=== PATIENT | male | born 1975 | race Caucasian/White ===

== ENCOUNTER 2017-04-24 22:17 | Emergency (ER) | payer MEDICAID ==
[2017-04-24 23:00] VITALS: BP 131/81
[2017-04-25] MEDS ORDERED: TORADOL IM ONE (03:01)
--- NOTE | 2017-04-25 03:01 | Emergency Department Report ---
ED Upper Extremity Inj HPI - General Chief Complaint: Extremity Injury, Upper Stated Complaint: ARM PAIN Time Seen by Provider: 04/25/17 02:44 Source: patient Mode of arrival: Ambulatory Limitations: No Limitations - History of Present Illness Initial Comments: This is a 41-year-old male well-nourished with nontoxic or ill in appearance that presented to the ED complaining of pain status post fall that has occurred today about 10 in the morning. Patient was seen at [facility] and was diagnosed with right distal radius fracture as well as laceration to the right eyebrow. Patient stated he was prescribed Pageton 5 mg and stated the pain has not been subsided. Patient is currently presented with a cast as well as a sterile 4 x 4 dressed with tape to the right eyebrow region. Otherwise patient denies any other symptoms or complaints. Patient denies any allergies. Denies past medical history. Patient stated has a orthopedic appointment today in the morning. MD Complaint: Injury to:: forearm -: Gradual, days(s) (1) Other Extremity Injury: Forearm: Right Improves With: none Worsens With: none Context: fall Associated Symptoms: denies other symptoms. denies: weakness, numbness, neck pain, suspects foreign body, nausea/vomiting, heard/felt popping sensat - Related Data Previous Rx's Medication Instructions Recorded Last Taken Type HYDROcodone/APAP 10-325 [Pageton 1 each PO Q6H PRN #45 tablet 03/05/14 Unknown Rx 10-325 mg TAB] Levofloxacin [Levaquin TAB] 500 mg PO Q24HR #5 tablet 03/05/14 Unknown Rx Ibuprofen [Motrin 800 MG tab] 800 mg PO Q8HR PRN #20 tablet 04/25/17 Unknown Rx Allergies Allergy/AdvReac Type Severity Reaction Status Date / Time No Known Allergies Allergy Unverified 03/04/14 13:01 ED Review of Systems ROS: Stated complaint: ARM PAIN Other details as noted in HPI Constitutional: denies: chills, fever Eyes: denies: eye pain, eye discharge, vision change ENT: denies: ear pain, throat pain Respiratory: denies: cough, shortness of breath, wheezing Cardiovascular: denies: chest pain, palpitations Endocrine: no symptoms reported Gastrointestinal: denies: abdominal pain, nausea, diarrhea Genitourinary: denies: urgency, dysuria Musculoskeletal: denies: back pain, joint swelling, arthralgia Skin: denies: rash, lesions Neurological: denies: headache, weakness, paresthesias Psychiatric: denies: anxiety, depression Hematological/Lymphatic: denies: easy bleeding, easy bruising ED Past Medical Hx - Past Medical History Previous Medical History?: No Hx Hypertension: No Hx Congestive Heart Failure: No Hx Diabetes: No Hx Liver Disease: No Hx Renal Disease: No Hx Asthma: No Hx COPD: No - Surgical History Past Surgical History?: Yes Additional Surgical History: kidney stone removal - Social History Smoking Status: Never Smoker - Medications Home Medications: Home Medications Medication Instructions Recorded Confirmed Last Taken Type HYDROcodone/APAP 10-325 [Pageton 1 each PO Q6H PRN #45 tablet 03/05/14 Unknown Rx 10-325 mg TAB] Levofloxacin [Levaquin TAB] 500 mg PO Q24HR #5 tablet 03/05/14 Unknown Rx Ibuprofen [Motrin 800 MG tab] 800 mg PO Q8HR PRN #20 tablet 04/25/17 Unknown Rx ED Physical Exam - General Limitations: No Limitations General appearance: alert, in no apparent distress - Head Head exam: Present: atraumatic, normocephalic, normal inspection - Eye Eye exam: Present: normal appearance, PERRL, EOMI. Absent: scleral icterus, conjunctival injection, periorbital swelling, periorbital tenderness Pupils: Present: normal accommodation - ENT ENT exam: Present: normal exam, normal orophraynx, mucous membranes moist, TM's normal bilaterally, normal external ear exam - Neck Neck exam: Present: normal inspection, full ROM. Absent: tenderness, meningismus, lymphadenopathy, thyromegaly - Respiratory Respiratory exam: Present: normal lung sounds bilaterally. Absent: respiratory distress, wheezes, rales, rhonchi, stridor - Cardiovascular Cardiovascular Exam: Present: regular rate, normal rhythm, normal heart sounds. Absent: bradycardia, tachycardia, irregular rhythm, systolic murmur, diastolic murmur, rubs, gallop - GI/Abdominal GI/Abdominal exam: Present: soft, normal bowel sounds - Rectal Rectal exam: Present: deferred - Extremities Exam Extremities exam: Present: normal inspection, full ROM, normal capillary refill , other. Absent: tenderness, pedal edema, joint swelling, calf tenderness - Expanded Upper Extremity Exam Right General: Present: normal inspection Shoulder Exam: Present: normal inspection, full ROM. Absent: tenderness, swelling, abrasion, laceration, ecchymosis, deformity, crepidus, dislocation, erythema, tenderness over AC joint Upper Arm exam: Present: normal inspection, full ROM. Absent: tenderness, swelling, abrasion, laceration, ecchymosis, deformity, crepidus, dislocation, erythema Elbow exam: Present: other (Unable to examine due to splint.) Forearm Wrist exam: Present: other (Unable to examine due to splint.) Hand Wrist exam: Present: normal inspection, full ROM. Absent: tenderness, swelling, abrasion, laceration, ecchymosis, deformity, crepidus, dislocation, erythema, amputation, nail avulsion, subungual hematoma Neuro motor exam: Present: thumb opposition intact, thumb IP flexion intact, thumb adduction intact, fingers 2-5 abduction intact. Absent: wrist extension intact (Unable to examine due to splint.) Neurosensory exam: Present: other (Unable to examine due to splint.) Vascular: Present: vascular compromise, normal capillary refill - Back Exam Back exam: Present: normal inspection, full ROM. Absent: tenderness, CVA tenderness (R), CVA tenderness (L), muscle spasm, paraspinal tenderness, vertebral tenderness, rash noted - Neurological Exam Neurological exam: Present: alert, oriented X3, CN II-XII intact, normal gait, reflexes normal - Psychiatric Psychiatric exam: Present: normal affect, normal mood - Skin Skin exam: Present: warm, dry, intact, normal color. Absent: rash - Other Other exam information: Splint has been examined by myself. Patient denies any numbness or tingling. Denies splint being too tight. Patient is able to move digits freely. Warm to touch. Normal capillary refill. ED Course Vital Signs 04/24/17 22:56 Temperature 98.8 F Pulse Rate 72 Blood Pressure 131/81 O2 Sat by Pulse 97 Oximetry ED Medical Decision Making - Medical Decision Making Patient was examined by myself. I instructed patient that Pageton 5 mg should be taken as prescribed. I'll also instruct the patient that he should not operate heavy machinery while taking Pageton due to suspicion. Patient received Toradol 60 mg IM and ED. Patient also received ibuprofen 800 mg by mouth time of discharge. I instructed patient to follow up with his appointment that he has today in the morning with possibility of increasing Pageton or changing pain medication. At time time of discharge, the patient does not seem toxic or ill in appearance. No acute signs of distress noted. Patient agrees to discharge treatment plan of care. No further questions noted by the patient. I instructed the patient my concerns of increasing opioid medication and side effects of the opioids. Patient agrees to plan of care and was discharged. Critical care attestation.: If time is entered above; I have spent that time in minutes in the direct care of this critically ill patient, excluding procedure time. ED Disposition Clinical Impression: Pain Disposition: DC-01 TO HOME OR SELFCARE Is pt being admited?: No Does the pt Need Aspirin: No Condition: Stable Instructions: Acetaminophen/Codeine (By mouth), Ibuprofen (By mouth) Additional Instructions: Do not operate heavy machinery while taking Pageton due to sedation. Take ibuprofen as prescribed. Follow-up with your orthopedic appointment in the morning. Prescriptions: Ibuprofen [Motrin 800 MG tab] 800 mg PO Q8HR PRN #20 tablet PRN Reason: Pain Referrals: PRIMARY MD DENIS [Primary Care Provider] - 3-5 Days FRANKIE BAUMAN MD [Staff Physician] - 3-5 Days [facility] [Outside] - 3-5 Days [facility] [place] [Outside] - 3-5 Days Forms: Work/School Release Form(ED)
== END 2017-04-25 03:33 | disposition home or self-care (01) ==
LOC: ED 22:17
DX: M79.631 Pain in right forearm (principal); W19.XXXA Unspecified fall, initial encounter; Y93.89 Activity, other specified; Y99.9 Unspecified external cause status; Y92.89 Other specified places as the place of occurrence of the external cause
CPT/HCPCS: 96372; 99282; J1885

== ENCOUNTER 2017-04-28 14:07 | Emergency (ER) | payer SELFPAY ==
[2017-04-28 14:32] VITALS: BP 127/74
--- NOTE | 2017-04-28 15:42 | Emergency Department Report ---
HPI - General Chief Complaint: Laceration/Recheck/Suture Time Seen by Provider: 04/28/17 15:24 - HPI HPI: This is a 41-year-old male presents the emergency department for evaluation and possible suture removal from the right side of the forehead. Thing came down onto his forehead while at work 5 days ago causing a laceration and the patient went to another hospital where the sutures were placed. He was told that there were to be removed in 5 days, and today is day 6. He denies any past medical history. He denies any surrounding redness, discharge or pus or any signs or symptoms of infection. ED Past Medical Hx - Past Medical History Hx Hypertension: No Hx Congestive Heart Failure: No Hx Diabetes: No Hx Liver Disease: No Hx Renal Disease: No Hx Asthma: No Hx COPD: No - Surgical History Additional Surgical History: kidney stone removal - Social History Smoking Status: Never Smoker Substance Use Type: None - Medications Home Medications: Home Medications Medication Instructions Recorded Confirmed Last Taken Type HYDROcodone/APAP 10-325 [[place] 1 each PO Q6H PRN #45 tablet 03/05/14 Unknown Rx 10-325 mg TAB] Levofloxacin [Levaquin TAB] 500 mg PO Q24HR #5 tablet 03/05/14 Unknown Rx Ibuprofen [Motrin 800 MG tab] 800 mg PO Q8HR PRN #20 tablet 04/25/17 Unknown Rx ED Review of Systems ROS: Stated complaint: STITCHES REMOVED Other details as noted in HPI Comment: All other systems reviewed and negative Constitutional: denies: chills, fever Eyes: denies: eye pain, eye discharge, vision change ENT: denies: ear pain, throat pain Respiratory: denies: cough, shortness of breath, wheezing Cardiovascular: denies: chest pain, palpitations Gastrointestinal: denies: abdominal pain, nausea, diarrhea Genitourinary: denies: urgency, dysuria Musculoskeletal: denies: back pain, joint swelling, arthralgia Skin: other (laceration). denies: rash Neurological: denies: headache, weakness, paresthesias Physical Exam - Physical Exam Vital Signs: Vital Signs 04/28/17 14:31 Temperature 98.0 F Pulse Rate 80 Respiratory 16 Rate Blood Pressure 127/74 [Right] O2 Sat by Pulse 98 Oximetry Physical Exam: GENERAL: The patient is well-developed well-nourished. HEENT: Normocephalic. xtraocular motions are intact. Patient has moist mucous membranes. NECK: Supple. Trachea is midline. CHEST/LUNGS: Clear to auscultation. There is no respiratory distress noted. HEART/CARDIOVASCULAR: Regular. There is no tachycardia. There is no gallop rub or murmur. ABDOMEN: Abdomen is soft, nontender. Patient has normal bowel sounds. There is no abdominal distention. SKIN: There is a transverse laceration to the right lower forehead. It does not appear infected. There are 6 similar opted stitches in place. No bleeding , weeping, drainage or any surrounding erythema. NEURO: The patient is awake, alert, and oriented. The patient is cooperative. The patient has no focal neurologic deficits. The patient has normal speech and gait. MUSCULOSKELETAL: The right upper extremity is currently in a cast and sling. Left upper extremity does not have any tenderness or deformity. ED Course Vital Signs 04/28/17 14:31 Temperature 98.0 F Pulse Rate 80 Respiratory 16 Rate Blood Pressure 127/74 [Right] O2 Sat by Pulse 98 Oximetry - Procedure Description Procedures done: Suture removal: 6 simple interrupted sutures were individually removed. There was no dehiscence. No signs of infection ED Medical Decision Making - Medical Decision Making Patient presents for wound check and suture removal. There is no signs of infection on initial examination. I started off taking out every other suture and there was no signs of any dehiscence or any signs of infection. The other 3 sutures were then removed. Steri-Strips are placed with Dermabond. Patient will follow-up with primary care for further wound check, but he will return to the ER if any worsening of symptoms, development of infection, or any acute distress. Critical Care Time: No Critical care attestation.: If time is entered above; I have spent that time in minutes in the direct care of this critically ill patient, excluding procedure time. ED Disposition Clinical Impression: Encounter for removal of sutures Disposition: DC-01 TO HOME OR SELFCARE Is pt being admited?: No Condition: Good Instructions: Suture Removal (ED), Skin Adhesive Care (ED) Additional Instructions: Please follow-up with a primary care doctor for further evaluation. Return to the emergency department with any worsening of her symptoms, signs/symptoms of infection or any acute distress. Referrals: PRIMARY CARE, [Primary Care Provider] - 3-5 Days [facility] [Outside] - 3-5 Days Time of Disposition: 15:58
== END 2017-04-28 16:11 | disposition home or self-care (01) ==
LOC: ED 14:07
DX: Z48.02 Encounter for removal of sutures (principal)